=== PATIENT | female | born 1995 ===

== ENCOUNTER 2025-02-09 15:40 | Outpatient (CLI) | payer OTHER | END 2025-02-09 16:25 | disposition home or self-care (01) | LOC: NST 15:40 | PROVIDERS: ATTEND Obstetrics & Gynecology Maternal & Fetal Medicine | DX: Z34.83 Encounter for supervision of other normal pregnancy, third trimester (principal) ==

== ENCOUNTER 2025-02-19 13:30 | Inpatient (IN) | payer OTHER ==
[~2025-02-19] VITALS: Ht 162.6 cm; Wt 61.2 kg
[2025-03-03 15:06] VITALS: BP 102/62
[2025-03-03 16:00] VITALS: BP 102/62
[2025-03-03] MEDS ORDERED: PRENATAL + DHA1 EAC1 PO (17:10)
[2025-03-03] MEDS ORDERED: PLAQUENIL PO (17:11)
[2025-03-03 17:14] LABS: BASO % 0.3 % (0.1-1.2); EOS # 0.02 (0.04-0.54); EOS % 0.3 % (0.7-7.0); LYMPH # 1.30 (1.18-3.74); LYMPH % 22.5 % (19.3-53.1); MEAN PLATELET VOLUME 11.10 fl (9.4-12.4); MONO # 0.40 (0.24-0.82); MONO % 6.9 % (4.7-12.5); NEUT # 4.00 (1.56-6.13); NEUT % 69.5 % (34.0-71.1); RED CELL DISTRIBUTION WIDTH 13.4 % (11.6-14.4)
[2025-03-03 17:36] LABS: INR 0.94
[2025-03-03 17:40] LABS: ALT/SGPT 26.0 U/L (12-78); AST/SGOT 27.0 U/L (15-37); BILIRUBIN TOTAL 0.55 mg/dL (0.3-1.2); BUN CREA RATIO 18.0 (7.0-25.0); CREATININE SERUM 0.56 mg/dL (0.55-1.02); GFR 127.99; GLOBULINA 4.2 G/DL (2.4-3.5); GLUCOSE FASTING 86.0 mg/dL (65-100); OSMOLALITY SERUM 276.0 MOSM/KG (275-295)
[2025-03-03] MEDS ORDERED: MISOPROSTOL 25 MCG TABLET ONE (18:47)
[2025-03-03 19:18] VITALS: BP 101/59
[2025-03-03 23:37] VITALS: BP 120/67
[2025-03-04] VITALS (10 sets, daily range): BP systolic 94–119; BP diastolic 55–73
[2025-03-04] MEDS ORDERED: MORPHINE SULFATE 4 MG/ML CARTRIDGE IV PRN (00:30)
[2025-03-04] MEDS ORDERED: ONDANSETRON HCL 2 MG/ML VIAL IV PRN (01:30)
[2025-03-04] MEDS ORDERED: OXYTOCIN 500 ML IV ONE ×2 (07:45)
[2025-03-04] MEDS ORDERED: ERYTHROMYCIN BASE OPHT 1GM EACH TUBE OP ONE ×2 (09:19→10:30)
[2025-03-04] MEDS ORDERED: OXYTOCIN 20 UNITS/1000ML RL PIGGYBAG IV ONE (09:19)
[2025-03-04] MEDS ORDERED: LIDOCAINE HCL 1% 10ML VIAL ONE (09:19)
[2025-03-04] MEDS ORDERED: CHLORHEXIDINE GLUCONATE 120 ML BOTTLE TOP ONE ×2 (09:19→10:30)
[2025-03-04] MEDS ORDERED: LIDOCAINE HCL 1% 10ML VIAL IJ ONE (10:30)
[2025-03-04] MEDS ORDERED: OXYTOCIN 1,000 ML IV SCH ×2 (10:30→10:45)
[2025-03-04] MEDS ORDERED: CHLORHEXIDINE GLUCONATE 120 ML BOTTLE TP SCH (10:45)
[2025-03-04] MEDS ORDERED: ACETAMINOPHEN 325 MG TABLET PO PRN (12:00)
[2025-03-05] VITALS: BP 90/60
[2025-03-05 06:46] LABS: BASO % 0.1 % (0.1-1.2); EOS # 0.03 (0.04-0.54); EOS % 0.3 % (0.7-7.0); LYMPH # 1.75 (1.18-3.74); LYMPH % 16.1 % (19.3-53.1); MEAN PLATELET VOLUME 11.30 fl (9.4-12.4); MONO # 0.70 (0.24-0.82); MONO % 6.4 % (4.7-12.5); NEUT # 8.35 (1.56-6.13); NEUT % 76.8 % (34.0-71.1); RED CELL DISTRIBUTION WIDTH 13.2 % (11.6-14.4)
[2025-03-05 08:00] VITALS: BP 105/70
[2025-03-05] MEDS ORDERED: IRON FUM,PS/FOLIC/BCOMP,C NO.9 1 CAP CAPSULE PO SCH (09:00)
[2025-03-05 17:00] VITALS: BP 96/59
[2025-03-06] VITALS: BP 97/67
[2025-03-06 08:45] VITALS: BP 100/70
== END 2025-03-06 15:06 | disposition home or self-care (01) | DRG 807 ==
LOC: EDUNIT# 13:30 → OB/GYN 02-28 13:30 → LDR 03-03 14:04 → OB/GYN 03-04 12:22
PROVIDERS: Obstetrics & Gynecology; ADMIT Obstetrics & Gynecology Maternal & Fetal Medicine; ATTEND Obstetrics & Gynecology Maternal & Fetal Medicine
PROC: 4A1HXCZ Monitoring of Products of Conception, Cardiac Rate, External Approach (ICD-10-PCS; 2025-03-03)
PROC: 10E0XZZ Delivery of Products of Conception, External Approach (ICD-10-PCS; principal; 2025-03-04)
PROC: 0HQ9XZZ Repair Perineum Skin, External Approach (ICD-10-PCS; 2025-03-04)
DX: O70.0 First degree perineal laceration during delivery (principal); Z37.0 Single live birth; Z3A.40 40 weeks gestation of pregnancy